=== PATIENT | male | born 2000 | race Caucasian/White ===

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

== ENCOUNTER 2018-01-02 12:01 | Emergency (ER) | payer OTHER ==
[2018-01-02 14:00] VITALS: BP 118/64
--- NOTE | 2018-01-02 14:08 | UC ---
Ear Complaint HPI - HPI Summary HPI Summary: Pt presents with c/o bilateral ear ache. right ear more painful than left. Pt has URI symptoms of nasal congestion, fever, and ST. - History of Current Complaint Chief Complaint: UCRespiratory Stated Complaint: FEVER/CONGESTION/EAR COMPLAINT Time Seen by Provider: 01/02/18 13:52 Hx Obtained From: Patient Onset/Duration: Gradual Onset, Lasting Days - 7, Still Present Severity Initially: Mild Severity Currently: Moderate Pain Intensity: 6 Alleviating Factors: OTC Meds Associated Signs/Symptoms: Positive: URI Symptoms Related History: Other (Noted In Comments) - bilateral ear tubes as child - Allergies/Home Medications Allergies/Adverse Reactions: Allergies Allergy/AdvReac Type Severity Reaction Status Date / Time No Known Allergies Allergy Verified 01/02/18 13:55 Home Medications: Home Medications hydrOXYzine HCL TAB* [Atarax 10 MG TAB*] 1 tab TID PRN 01/02/18 [History Confirmed 01/02/18] PMH/Surg Hx/FS Hx/Imm Hx Previously Healthy: Yes - Surgical History Surgical History: Yes - bilateral ear tubes as child - Family History Known Family History: Positive: Hypertension - Social History Occupation: Student Lives: With Family Alcohol Use: Occasionally Substance Use Type: None Smoking Status (MU): Never Smoked Tobacco Have You Smoked in the Last Year: No Review of Systems Constitutional: Fever Skin: Negative Eyes: Negative ENT: Sore Throat, Ear Ache, Nasal Discharge, Sinus Congestion Respiratory: Cough Cardiovascular: Negative Gastrointestinal: Negative Genitourinary: Negative Motor: Negative Neurovascular: Negative Musculoskeletal: Negative Neurological: Negative Psychological: Negative Is Patient Immunocompromised?: No All Other Systems Reviewed And Are Negative: Yes Physical Exam Triage Information Reviewed: Yes Appearance: Well-Appearing Vital Signs: Initial Vital Signs Temp 99.2 F 01/02/18 13:56 Pulse 111 01/02/18 13:56 Resp 16 01/02/18 13:56 BP 118/64 01/02/18 13:56 Pulse Ox 98 01/02/18 13:56 Vital Signs Reviewed: Yes Eye Exam: Normal ENT: Positive: Normal ENT inspection Neck exam: Normal Respiratory Exam: Normal Cardiovascular Exam: Normal Musculoskeletal Exam: Normal Neurological Exam: Normal Psychological Exam: Normal Skin Exam: Normal Ear Complaint Course/Dx - Differential Dx/Diagnosis Differential Diagnosis/HQI/PQRI: Mastoiditis, Otitis Media, URI Provider Diagnoses: URI. viral syndrome Discharge - Sign-Out/Discharge Documenting (check all that apply): Patient Departure - Discharge Plan Condition: Stable Disposition: HOME Patient Education Materials: Earache (ED), Viral Syndrome (ED) Referrals: No Primary Care Phys,NOPCP [Primary Care Provider] - [facility] [place] [facility] [Outside] - If Needed Additional Instructions: Per institutional requirements, I have reviewed the chart, however, I was not consulted specifically or made aware of this patient by the above midlevel provider. I did not personally evaluate, interact with , or disposition this patie - Billing Disposition and Condition Condition: STABLE Disposition: Home
== END 2018-01-02 14:13 | disposition home or self-care (01) ==
LOC: UCCORT 12:01
DX: J06.9 Acute upper respiratory infection, unspecified (principal); B34.9 Viral infection, unspecified
CPT/HCPCS: 99211; G0463